=== PATIENT | male | born 1975 | race Caucasian/White ===

== ENCOUNTER 2018-05-06 14:17 | Inpatient (IN) | payer MEDICARE, MEDICAID ==
[~2018-05-06] VITALS: Ht 180.3 cm; Wt 59.0 kg
[2018-05-06] MEDS ORDERED: TEMAZEPAM 7.5 MG CAPSULE PO PRN (15:00)
[2018-05-06] MEDS ORDERED: MAGNESIUM HYDROXIDE 30 ML UDC PO PRN (15:00)
[2018-05-06] MEDS ORDERED: ACETAMINOPHEN 325 MG TABLET PO PRN (15:00)
[2018-05-06] MEDS ORDERED: MAG HYDROX/AL HYDROX/SIMETH 30 ML UDC PO PRN (15:00)
[2018-05-06] MEDS ORDERED: ESCI10TA PO (15:21)
[2018-05-06] MEDS ORDERED: OMEP20CA10 PO (15:21)
[2018-05-06] MEDS ORDERED: SERT25TA PO (15:21)
--- NOTE | 2018-05-06 15:22 | NUR ---
Clarified with pt. on meds he took at home. Per pt. he took Zoloft 10 mg po daily, Lexapro 10 mg po daily and Omeprazole 20 mg po daily. the last he took the meds was yesterday. Addendum: 05/06/18 at 1531 by ELY SRINIVASAN RN The last time he took the meds was yesterday. Addendum: 05/06/18 at 1614 by ELY SRINIVASAN RN PTShala STROUD
--- NOTE | 2018-05-06 15:38 | NUR ---
ADMISSION NOTE: PATIENT ADMITTED INTO [facility] AT 1430 VIA AMBULANCE TRANSPORT. PATIENT DIRECT ADMIT FROM [facility]. ACCORDING TO BATH, HE STATES HE WANTED TO BURN HIMSELF. THEN, TRANSFERED TO [facility]. PSYCHIATRIST MADE AWARE AND ORDERS RECEIVED. NTERNIST MADE AWARE OF ADMISSION AND MED RECONCILIATION. PATIENT RESTLESS AND UNABLE TO SIGN ADMISSION PAPERS. BELONGINGS ACCOUNTED FOR. MRSA SWAB DONE. SKIN ASSESSMENT COMPLETED AND IN CHART. PATIENT ORIENTED TO UNIT POLICY AND PROCEDURES. PATIENT STATES HE HAS SI AT TIMES, STATES HE HAS NO HI.
[2018-05-06 16:12] VITALS: BP 124/76
--- NOTE | 2018-05-06 16:26 | NUR ---
Called the Epic exchange to page Edmund Sorto and awaiting for the call back.
--- NOTE | 2018-05-06 16:30 | NUR ---
Edmund Sorto called and notified about the admission and told to reconcile meds.
--- NOTE | 2018-05-06 16:38 | NUR ---
Dr. Rey ordered ok to transfer to [facility].
--- NOTE | 2018-05-06 17:30 | NUR ---
RN NOTE: PATIENT TRANSFER TO OVERFLOW. REPORT GIVEN TO NURSE.
--- NOTE | 2018-05-06 18:16 | NUR ---
MS RN GPS OVERFLOW TRANSFER NOTES: RECEIVED PT FROM GPS NURSE IN STABLE CONDITION. PT IS A/O X3. NO SOB OR SIGNS OF DISTRESS NOTED. BREATHING IS EVEN AND UNLABORED. HE DENIES ANY SUICIDAL OR HOMICIDAL IDEATIONS AT THIS TIME. FURTHER DENIES ANY FUTURE PLANS. 1;1 SITTER AT BEDSIDE. BELONGINGS VERIFIED BY TUCKPOINTER. SOME OF PT'S BELONGINGS REMAIN IN GPS SAFE. NO IV NOTED. BED IN LOW LOCKED POSITION,K SIDE RAILS UP X2, BED ALARM ON. WILL CONTINUE TO MONITOR
--- NOTE | 2018-05-06 18:52 | NUR ---
MS RN CLOSING NOTES: PT REMAINS STABLE. HE CONTINUE TO DENY SI/HI. 1:1 SITTER REMAINS AT BEDSIDE. WILL ENDORSE TO NIGHTSHIFT NURSE FOR VITA
--- NOTE | 2018-05-06 19:50 | NUR ---
RN OPENING NOTES RECEIVED REPORT FROM DAYSHIFT RN AFSATU. FOUND Pt ASLEEP IN BED. NO S/S OF ACUTE DISTRESS OR SOB NOTED. Pt IS A/OX2-3, VERBAL, ABLE TO MAKE NEEDS KNOWN. SITTER AT BEDSIDE DUE TO SI AND IS ON A 5150 HOLD. NO IV ACCESS. SAFETY MEASURES IN PLACE. BED LOW, LOCKED, HOB ELEVATED, & SIDE RAILS UP. WILL CONTINUE TO MONITOR Pt THROUGHOUT THE NIGHT FOR SAFETY.
[2018-05-06 20:00] VITALS: BP 126/71
--- NOTE | 2018-05-07 06:50 | NUR ---
RN CLOSING NOTES NO SIGNIFICANT CHANGES DURING THE NIGHT. Pt REMAINS IN STABLE CONDITION AT THIS TIME. SITTER AT BEDSIDE. Pt ASLEEP WITH UNLABORED AND EVEN RESPIRATIONS, WITH EQUAL CHEST RISE AND FALL. NO S/S OF ACUTE DISTRESS OR SOB NOTED DURING THE SHIFT. ALL NEEDS MET AND ATTENDED TO. SAFETY MEASURES IN PLACE. BED LOW, LOCKED, HOB ELEVATED, SIDE RAILS UP, CALL LIGHT AND BEDSIDE TABLE WITHIN REACH. WILL ENDORSE TO DAYSHIFT RN FOR Pt's VITA.
[2018-05-07] MEDS: PANTOPRAZOLE 40 MG TABLET.DR PO SCH (07:30)
[2018-05-07 07:58] LABS: ALBUMIN 3.5 g/dL (3.4-5.0); BILIRUBIN,TOTAL 1.9 mg/dL (0.2-1.0); CALCIUM, SERUM 8.6 mg/dL (8.5-10.1); CREATININE 0.7 mg/dL (0.6-1.3); POTASSIUM 3.9 mmol/L (3.5-5.1); TOTAL PROTEIN, SERUM 7.2 g/dL (6.4-8.2)
[2018-05-07 08:05] LABS: CHOLESTEROL 112 mg/dL (<200); HDL CHOLESTEROL 45 mg/dL (40-60); LDL 66 mg/dL (0-99); TRIGLYCERIDES 55 mg/dL (30-150)
--- NOTE | 2018-05-07 10:06 | NUR ---
RN OPENING NOTES RECEIVED PT, PT IN BED SLEEPING SITTER IS AT BEDSIDE. NO S/S OF RESPIRATORY DISTRESS. PT DOES NOT APPEAR TO BE IN PAIN AT THIS TIME. PT IS ADMITTED INTO GPS OVERFLOW ON . ADDITIONALLY, ON 5149 HOLD WHICH BEGAN YESTERDAY 05/07/18. PER BLOGS MANAGER REPORT, PRN ANTI ANXIETY MEDICATION X1 BEFORE BED. SAFETY MEASURES IN PLACE, CALL LIGHT WITHIN REACH. WILL CONTINUE TO MONITOR.
[2018-05-07] MEDS: LORAZEPAM 0.5 MG TABLET PO PRN (13:59)
[2018-05-07] MEDS: LITHIUM CARBONATE 150 MG CAPSULE PO SCH ×2 (14:53→20:35)
[2018-05-07] MEDS: ARIPIPRAZOLE 5 MG TABLET PO SCH ×2 (14:53→16:34)
--- NOTE | 2018-05-07 19:30 | NUR ---
MS RN OPENING NOTE Patient was seen sleeping in bed, awoke easily to name. Patient is AAOx3, breathing on RA with no SOB, and no signs of acute distress. Patient is GPS-overflow, has a 1:1 sitter at the bedside. Patient has a flat affect but is currently calm and cooperative. Bed is in the low/locked position, two side rails up, and call bland within reach. Patient has no needs or concerns at this time. Will continue to monitor.
--- NOTE | 2018-05-07 19:30 | NUR ---
RN CLOSING NOTE PT IN BED RESTING. ALL PT NEEDS ANTICIPATED AND MET. SITTER AT BEDSIDE. SAFETY MEASURES IN PLACE, CALL LIGHT WITHIN REACH. WILL ENDORSE TO INDUSTRIAL ROBOTICS MECHANIC FOR VITA.
[2018-05-07 20:00] VITALS: BP 119/77
[2018-05-07 20:13] VITALS: BP 119/77
--- NOTE | 2018-05-07 23:35 | NUR ---
MS RN NOTE - Sleeping med Patient requested medication to help him sleep. 7.5 mg PO temazepam administered as ordered for prn use. Will continue to monitor.
--- NOTE | 2018-05-08 07:01 | NUR ---
GPS RN CLOSING NOTE Patient is AAOx3, breathing on RA with no SOB, and no signs of acute distress. Patient slept well overnight with the aid of prn temazepam for sleep as ordered. Patient remains free of complications and free from self-harm. One-to-one sitter is at the bedside. Patient has been calm, cooperative, and med compliant this shift. All patient needs were addressed. Bed is in low/locked position, two side rails up, and call bland within reach. Patient care endorsed to day shift nurse.
[2018-05-08] MEDS: LORAZEPAM 0.5 MG TABLET PO PRN ×2 (07:20→22:57)
[2018-05-08] MEDS: LITHIUM CARBONATE 150 MG CAPSULE PO SCH (09:00)
[2018-05-08] MEDS: PANTOPRAZOLE 40 MG TABLET.DR PO SCH (09:02)
[2018-05-08] MEDS: ARIPIPRAZOLE 5 MG TABLET PO SCH ×2 (09:02→18:00)
[2018-05-08] MEDS ORDERED: IV NS 0.9% 1,000 ML IV PRN (15:30)
[2018-05-08 16:00] VITALS: BP 136/89
[2018-05-08] MEDS: BENZTROPINE MESYLATE (1 MG) 1 MG TABLET PO SCH (18:00)
--- NOTE | 2018-05-08 18:44 | NUR ---
RN OPENING NOTES RECEIVED PT, PT IN BED SLEEPING, 1:1 SITTER D/C'ED. NO S/S OF RESPIRATORY DISTRESS. PT DOES NOT APPEAR TO BE IN PAIN AT THIS TIME. PT IS ADMITTED INTO [facility] OVERFLOW ON . ADDITIONALLY, ON 5149 HOLD WHICH BEGAN ON 05/06/18. PT IS ANXIOUS, WILL ADDRESS PHARMACOLOGICALLY. SAFETY MEASURES IN PLACE, CALL LIGHT WITHIN REACH. WILL CONTINUE TO MONITOR.
--- NOTE | 2018-05-08 18:45 | NUR ---
RN CLOSING NOTES PT IN BED RESTING. NO S/S OF RESP DISTRESS OR SOB. IV STARTED ON RAC 22G, CURRENTLY INFUSING NS AT 100 ML/HR. SAFETY MEASURES IN PLACE CALL LIGHT WITHIN REACH. WILL ENDORSE TO CLEAN IN PLACES OPERATOR FOR VITA.
[2018-05-08 20:00] VITALS: BP_SYST 139; BP_DIAS 82; BP_DIAS 92
--- NOTE | 2018-05-08 20:00 | NUR ---
RN NOTES RECEIVED PT. AWAKE ON BED, ON , A/OX4, AMBULATORY DENIES PAIN, NOT IN DISTRESS, SITTER AT BEDSIDE, CALL LIGHT WITHIN REACH, SIDERAILSUPX2, CONTINUE TO MONITOR
--- NOTE | 2018-05-08 22:59 | NUR ---
RN NOTES COMPLAINED OF FEELING ANXIOUS-ATIVAN 1MG PO GIVEN ORDERED..., COMPLAINED OF BACK PAIN-TYLENOL 650MG PO GIVEN ORDERED, V/S STABLE
--- NOTE | 2018-05-09 06:36 | NUR ---
RN NOTES SLEEPING BUT AROUSABLE, DENIES PAIN,. NO SOB, MORNING CARE RENDERED, CALL LIGHT WITHIN REACH, SIDERAILSUPX2,.PT NEEDS ATTENDED
[2018-05-09 08:00] VITALS: BP 125/83
--- NOTE | 2018-05-09 08:00 | NUR ---
GPS RN NOTES PATIENT IN BED RESTING NO SOB OR ACUTE DISTRESS NOTED. PATIENT COOPERATIVE. WITH SITTER AT BEDSIDE. WILL CONTINUE TO MONITOR.
[2018-05-09] MEDS: BENZTROPINE MESYLATE (1 MG) 1 MG TABLET PO SCH ×2 (08:14→13:03)
[2018-05-09] MEDS: ARIPIPRAZOLE 5 MG TABLET PO SCH ×2 (08:14→13:03)
[2018-05-09] MEDS: PANTOPRAZOLE 40 MG TABLET.DR PO SCH (08:14)
[2018-05-09 08:18] LABS: BASOPHILS # (AUTO) 0.1 /CMM (0.0-0.2); BASOPHILS % (AUTO) 1.4 % (0.0-2.0); EOSINOPHILS % (AUTO) 3.2 % (0.0-6.0); HEMATOCRIT 38 % (39-51); HEMOGLOBIN 12.3 g/dL (13.5-17.5); LYMPHOCYTES # (AUTO) 1.7 /CMM (0.8-4.8); LYMPHOCYTES % (AUTO) 33.3 % (20.0-44.0); MEAN CORPUSCULAR HEMOGLOBIN 21 PG (26.0-33.0); MEAN CORPUSCULAR HGB CONC 32 g/dl (31.0-36.0); MEAN CORPUSCULAR VOLUME 65 fL (80-96); MONOCYTES # (AUTO) 0.5 /CMM (0.1-1.30); MONOCYTES % (AUTO) 10.1 % (2.0-12.0); NEUTROPHILS # (AUTO) 2.6 /CMM (1.8-8.9); PLATELET COUNT (AUTO) 151 /CMM (150-450); RDW COEFFICIENT OF VARIATION 15.2 (11.5-15.0); RED BLOOD CELL COUNT(AUTO) 5.89 MIL/uL (4.5-6.0); WHITE BLOOD COUNT (AUTO) 5.1 K/uL (4.3-11.0)
[2018-05-09 08:24] LABS: CALCIUM, SERUM 8.9 mg/dL (8.5-10.1); CREATININE 0.8 mg/dL (0.6-1.3); MAGNESIUM 1.9 mg/dL (1.8-2.4); PHOSPHORUS 3.7 mg/dL (2.5-4.9); POTASSIUM 4.3 mmol/L (3.5-5.1)
[2018-05-09] MEDS: LORAZEPAM 0.5 MG TABLET PO PRN (08:27)
[2018-05-09 10:58] LABS: EOSINOPHILS % (MANUAL) 5 % (0-4); LYMPHOCYTES % (MANUAL) 29 % (16-48); MONOCYTES % (MANUAL) 9 % (0-11.0); NEUTROPHILS % (MANUAL) 57 (42-76)
--- NOTE | 2018-05-09 12:31 | NUR ---
BELLE contacted pts housing navigator per pts request; Gloria Heard [phone] [facility] [address] to inform her pt was hospitalized and is requesting her assistance with substance abuse residential treatment. Gloria stated to BELLE that she would call pt to follow up with him.
--- NOTE | 2018-05-09 14:00 | NUR ---
GPS NOTES PER DR. BRIGGS PATIENT CLEARED TO BE DISCHARGED HOME WITH FOLLOW UP INFO FOR [facility] CL[facility] PROVIDED BY GERMAN INSTRUCTOR. STEPH MAURICE NOTIFIED ORDERS TO DISCHARGE SINCE CLEARED BY DR. BRIGGS. ORDERS NOTED AND CARRIED OUT.
--- NOTE | 2018-05-09 14:12 | NUR ---
DISCHARGE NOTE: Patient will be discharged at 2:30pm home to [address] [facility] [address] [facility] [address] via public transportation. Pts mood was pleasant with congruent affect. Pt denied suicidal/homicidal ideations and denied visual/auditory hallucinations. Patient was referred to the [facility] [address] [place] [address] / and was encouraged to present at 9am on Thursday May 10, 2018. Additional resources included [facility] [address] [place] [address] and [facility] [address] [place] [address] . For smoking cessation, patient was referred to the [employer] or [employer] 594-Ul[address]-MAP. Patient was provided with a referral to [facility] [address] [facility] [address] and to [facility] [address] [facility] [phone]. The multidisciplinary exitcare form was done, printed, signed, and given to the patient.
--- NOTE | 2018-05-09 14:12 | NUR ---
INITIAL DISCHARGE PLAN: Patient wishes to be discharged home to [address] [place] [id number] . Sw will help form a safe and proper discharge in collaboration with .
--- NOTE | 2018-05-09 14:45 | NUR ---
GPS RN NOTES PATIENT DISCHARGED HOME IN STABLE CONDITION. DISCHARGE INSTRUCTIONS PROVIDED VERBALIZED UNDERSTANDING. DISCHARGE PROTOCOL FOLLOWED. ALL BELONGING ACCOUNTED FOR, BELONGING LIST SIGNED. RETURNED BELONGINGS FROM [facility]E. PATIENT WAS SEEN BY PT EVALUATED AND DISCHARGED. PATIENT ALSO SEEN BY CIVIL ENGINEER'S AIDE ALL RECOURSES PROVIDED FOR FOLLOW UP. PT DENIES SUICIDAL/HOMICIDAL IDEATIONS AND DENEIED VISUAL/AUDITORY HALLUCINATIONS. PATIENT ESCORTED DOWN WITH ENGINEERING INSPECTION ASSISTANT.
== END 2018-05-09 14:46 | disposition home or self-care (01) | DRG 885 ==
LOC: GPS 14:17 → GPSOV 17:31
PROVIDERS: ADMIT Psychiatry & Neurology Psychosomatic Medicine; ATTEND Psychiatry & Neurology Psychosomatic Medicine
DX: F25.0 Schizoaffective disorder, bipolar type (principal); R45.851 Suicidal ideations; F41.9 Anxiety disorder, unspecified; K21.9 Gastro-esophageal reflux disease without esophagitis; F19.90 Other psychoactive substance use, unspecified, uncomplicated
CPT/HCPCS: 36415; 80048-TC; 80053-TC; 80061-TC; 83735-TC; 84100-TC; 85025-TC; J7030; Z7610

== ENCOUNTER 2018-06-01 00:11 | Emergency (ER) | payer MEDICARE, MEDICAID ==
[~2018-06-01] VITALS: Ht 180.3 cm; Wt 68.0 kg
[~2018-06-01 00:11] MED LIST: OMEP20CA10 PO
[2018-06-01 00:21] VITALS: BP 141/93
[2018-06-01 00:54] LABS: CALCIUM, SERUM 9.1 mg/dL (8.5-10.1); CARBON DIOXIDE 29 mmol/L (21-32); CHLORIDE 99 mmol/L (98-107); CREATININE 1.1 mg/dL (0.6-1.3); GLUCOSE 115 mg/dL (74-106); POTASSIUM 2.9 mmol/L (3.5-5.1); SODIUM SERUM 135 mmol/L (136-145); UREA NITROGEN, BLOOD 15 mg/dL (7-18)
[2018-06-01 01:00] LABS: ACETAMINOPHEN 0 ug/ml (10-30); ALANINE AMINOTRANSFERASE 196 U/L (12-78); ALBUMIN 4.5 g/dL (3.4-5.0); ALCOHOL, BLOOD 7 mg/dL (0-0); ALKALINE PHOSPHATASE 58 U/L (46-116); ASPARTATE AMINOTRANSFERASE 106 U/L (15-37); BILIRUBIN,DIRECT 0.5 mg/dL (0.0-0.2); BILIRUBIN,TOTAL 2.8 mg/dL (0.2-1.0); SALICYLATE < 0.2 mg/dL (2.8-20.0); TOTAL PROTEIN, SERUM 8.5 g/dL (6.4-8.2)
[2018-06-01 01:22] LABS: HEMATOCRIT 37 % (39-51); HEMOGLOBIN 12.2 g/dL (13.5-17.5); MEAN CORPUSCULAR HEMOGLOBIN 21 PG (26.0-33.0); MEAN CORPUSCULAR HGB CONC 33 g/dl (31.0-36.0); MEAN CORPUSCULAR VOLUME 63 fL (80-96); RED BLOOD CELL COUNT(AUTO) 5.91 MIL/uL (4.5-6.0); WHITE BLOOD COUNT (AUTO) 5.9 K/uL (4.3-11.0)
[2018-06-01 01:23] LABS: EOSINOPHILS % (AUTO) 3.2 % (0.0-6.0); LYMPHOCYTES % (AUTO) 35.5 % (20.0-44.0); MONOCYTES % (AUTO) 9.2 % (2.0-12.0); NEUTROPHILS % (AUTO) 51.1 % (43.0-81.0); PLATELET COUNT (AUTO) 172 /CMM (150-450)
[2018-06-01] MEDS ORDERED: POTASSIUM CHLORIDE 20 MEQ TAB.PRT.SR PO ONE ×3 (01:30→01:49)
--- NOTE | 2018-06-01 02:02 | NUR ---
WENT TO THE WAITING ROOM TO GIVE THE PT HIS POTASSIUM. PT WAS NO LONGER IN THE WAITING ROOM. DR COHEN AND BRIGID, RN/CHG NOTIFIED.
[2018-06-01 02:18] LABS: RDW COEFFICIENT OF VARIATION 16.5 (11.5-15.0)
== END 2018-06-01 02:06 | disposition left against medical advice (07) ==
LOC: ER 00:14
DX: E87.1 Hypo-osmolality and hyponatremia (principal); F32.9 Major depressive disorder, single episode, unspecified; Z79.899 Other long term (current) drug therapy
CPT/HCPCS: 36415; 80048; 80076; 80329; 85025; 99284; A4606; G0480 ×2; Z7610